=== PATIENT | female | born 1995 | race Caucasian/White ===

== ENCOUNTER 2018-11-27 08:03 | Emergency (ER) | payer BC ==
[~2018-11-27] VITALS: Ht 162.6 cm; Wt 52.3 kg
[2018-11-27] MEDS ORDERED: ASTELIN NASAL S34 ML (08:47)
[2018-11-27 09:02] LABS: COLLECTION METHOD CLEAN CATCH
[2018-11-27 09:16] LABS: MUCOUS Present /lpf; PH 5 (5-8); SQUAMOUS EPITHELIAL 0-2 /hpf; URINE APPEARANCE Clear; URINE BACTERIA None Seen /hpf; URINE BILIRUBIN Negative (NEGATIVE); URINE BLOOD 2+ (NEGATIVE); URINE COLOR Yellow; URINE GLUCOSE Negative (NEGATIVE); URINE KETONE 2+ (NEGATIVE); URINE LEUKOCYTE ESTERASE Negative (NEGATIVE); URINE NITRATE Negative (NEGATIVE); URINE PROTEIN(semi-quant) 1+ (NEGATIVE); URINE RBC 20-50 /hpf; URINE UROBILINOGEN Negative (NEGATIVE)
[2018-11-27] MEDS ORDERED: CEPHALEXIN500 M1 PO (09:43)
[2018-11-27 10:00] VITALS: BP 110/66; PULSE 94; TEMP 98.3
== END 2018-11-27 10:01 | disposition home or self-care (01) ==
LOC: COL.ER 08:03
PROVIDERS: Physician Assistant
DX: N30.91 Cystitis, unspecified with hematuria (principal)